=== PATIENT | female | born 1945 | race Caucasian/White ===

== ENCOUNTER 2019-06-19 01:00 | Inpatient (IN) | payer MEDICARE, BC ==
[2019-06-19] VITALS (7 sets, daily range): BP systolic 158–201; BP diastolic 69–90
[~2019-06-19] VITALS: Ht 162.6 cm; Wt 75.5 kg
[2019-06-19] MEDS ORDERED: INSU100V8 SQ (01:29)
[2019-06-19] MEDS ORDERED: METF500T17 PO (01:29)
[2019-06-19] MEDS ORDERED: HYDR-3342 PO (01:29)
[2019-06-19] MEDS ORDERED: METO-93 PO (01:29)
[2019-06-19] MEDS ORDERED: VERA300C2 PO (01:29)
[2019-06-19] MEDS ORDERED: LOSA100T14 PO (01:29)
[2019-06-19] MEDS ORDERED: SODIUM CHLORIDE FLUSH 10ML SYR IVF ONE (01:30)
[2019-06-19] MEDS ORDERED: LABETALOL 5MG/ML, 20ML IVPush ONE (01:30)
[2019-06-19] MEDS ORDERED: LABETALOL 5MG/ML, 20ML ONE (01:31)
[2019-06-19 01:33] LABS: MEAN CORPUSCULAR HEMOGLOBIN 29.9 pg (27.0-34.8); MEAN CORPUSCULAR HGB CONC 32.7 g/dL (32.4-35.8); MEAN CORPUSCULAR VOLUME 91.3 fL (80-100); MEAN PLATELET VOLUME 6.9 fL (7.4-10.4); PLATELET COUNT 535 x10^3/uL (130-400); RED BLOOD COUNT 3.88 x10^6/uL (3.82-5.3); RED CELL DISTRIBUTION WIDTH 14.7 % (9.6-15.2)
[2019-06-19 01:36] LABS: INTERNATIONAL NORMALIZED RATIO 1.09 (0.93-1.1); PROTHROMBIN TIME 11.4 Seconds (9.6-11.5)
[2019-06-19 01:37] LABS: ALBUMIN 3.4 g/dL (3.4-5.0); ANION GAP 7 mmol/L (5-15); CALCIUM 9.8 mg/dL (8.5-10.1); CHLORIDE 105 mmol/L (98-107); CREATININE 1.95 mg/dL (0.55-1.02)
--- NOTE | 2019-06-19 01:43 | NUR ---
Pt medicated per NOV. BP improving. Dr Mccord at bedside to [facility] for admission.
--- NOTE | 2019-06-19 02:01 | NUR ---
RECEIVED REPORT FROM CARMITA ZAZUETA; PT. TO BE TRANSPORT TO [facility] SOON [facility] FINISHED WITH ADMISSION EVAL. REPORT WAS ALREADY CALLED TO FLOOR BY CARMITA ZAZUETA.
[2019-06-19 02:15] LABS: BASOPHILS # (AUTO) 0.04 x10^3/uL (0-0.1); BASOPHILS % (AUTO) 0 % (0-1); EOSINOPHILS # (AUTO) 0.01 x10^3/uL (0-0.4); EOSINOPHILS % (AUTO) 0 % (1-7); LYMPHOCYTES # (AUTO) 1.64 x10^3/uL (1-3.4); LYMPHOCYTES % (AUTO) 11 % (22-44); MD SCAN; MONOCYTES # (AUTO) 1.56 x10^3/uL (0.2-0.8); MONOCYTES % (AUTO) 10 % (2-9); NEUTROPHILS # (AUTO) 12.13 x10^3/uL (1.8-6.8); NEUTROPHILS % (AUTO) 79 % (42-75)
[2019-06-19] MEDS ORDERED: LABETALOL 5MG/ML, 20ML IVPush PRN (02:30)
[2019-06-19] MEDS ORDERED: ONDANSETRON 2MG/ML, 2ML IVPush PRN (02:30)
[2019-06-19] MEDS ORDERED: ACETAMINOPHEN 325 MG TABLET PO PRN (02:30)
[2019-06-19] MEDS ORDERED: PHARMACY MAY ADJ FOR RENAL FX MC PRN (02:30)
[2019-06-19] MEDS: METOPROLOL SUCCINATE 100 MG TAB.ER.24H PO SCH (03:05)
[2019-06-19] MEDS ORDERED: MAGNESIUM SULFATE 1 GM in SODIUM CHLORIDE 0.9% 50 ML IV ONE (03:30)
[2019-06-19] MEDS ORDERED: SODIUM CHLORIDE 0.9% 1,000 ML IV SCH (03:30)
[2019-06-19 03:33] LABS: HEMOGLOBIN A1C 8.1 % (4.2-6.3)
[2019-06-19] MEDS: ASPIRIN 81 MG TABLET EC PO SCH (04:57)
[2019-06-19 07:19] LABS: ANION GAP 7 mmol/L (5-15); CALCIUM 9.7 mg/dL (8.5-10.1); CHLORIDE 106 mmol/L (98-107); CREATININE 1.86 mg/dL (0.55-1.02)
[2019-06-19] MEDS: INSULIN LISPRO 100 UNITS/ML, PEN SQ-INSULIN SCH ×4 (08:42→20:29)
[2019-06-19] MEDS ORDERED: METOPROLOL SUCCINATE 50 MG TAB.ER.24H PO SCH (09:00)
[2019-06-19] MEDS ORDERED: LABETALOL 5 MG/ML SYR. (IV ONLY) IVPush PRN (09:00)
[2019-06-19 09:07] LABS: MICROSCOPIC AUTO
[2019-06-19 09:09] LABS: CULTURE INDICATED? YES
[2019-06-19 09:10] LABS: CREATININE,URINE RANDOM 57.7 mg/dL
[2019-06-19] MEDS: LOSARTAN 50MG TABLET PO SCH ×2 (11:31→20:18)
[2019-06-19] MEDS: VERAPAMIL ER 180MG TABLET.ER PO SCH ×2 (11:31→20:17)
[2019-06-19] MEDS ORDERED: hydrALAzine 20 MG/ML, 1ML IV PRN (14:30)
[2019-06-19] MEDS ORDERED: MIDAZOLAM 1 MG/ML, 5ML ONE (14:39)
[2019-06-19] MEDS ORDERED: FENTANYL PF 100 MCG/2ML ONE ×2 (14:39→14:57)
[2019-06-19] MEDS ORDERED: CEFAZOLIN PMX 1GM/50ML 50 ML ONE (14:39)
[2019-06-19] MEDS ORDERED: LIDOCAINE 2%, 20ML ONE (14:40)
[2019-06-19] MEDS ORDERED: CEFAZOLIN 1,000 MG ONE (14:40)
[2019-06-19] MEDS: SODIUM CHLORIDE 0.9% 1,000 ML IV SCH ×2 (14:40→22:40)
[2019-06-19] MEDS ORDERED: ONDANSETRON 2MG/ML, 2ML ONE ×2 (14:57→15:36)
[2019-06-19] MEDS ORDERED: CEFAZOLIN PMX 1GM/50ML 50 ML IVPB ONE (15:00)
[2019-06-19] MEDS ORDERED: ONDANSETRON 2MG/ML, 2ML IV PRN (16:00)
[2019-06-19] MEDS ORDERED: HYDROcodone/APAP 5/325 TABLET PO PRN (16:00)
[2019-06-19] MEDS ORDERED: HOLD MEDICATION MC PRN (16:00)
[2019-06-19] MEDS: CEFAZOLIN PMX 1GM/50ML 50 ML IVPB SCH (20:17)
[2019-06-19] MEDS: SODIUM CHLORIDE FLUSH 10ML SYR IVF SCH (20:38)
[2019-06-19] MEDS ORDERED: VERAPAMIL HCL 300 MG HOMEMEDPO SCH (21:00)
[2019-06-19] MEDS ORDERED: INSULIN GLARGINE 100 UNITS/ML, PEN SQ-INSULIN SCH (21:00)
[2019-06-19] MEDS ORDERED: ENOXAPARIN 80 MG/0.8 ML SQ SCH (21:00)
[2019-06-20 02:46] VITALS: BP 139/76
[2019-06-20 04:51] LABS: BASOPHILS # (AUTO) 0.05 x10^3/uL (0-0.1); BASOPHILS % (AUTO) 0 % (0-1); EOSINOPHILS # (AUTO) 0.05 x10^3/uL (0-0.4); EOSINOPHILS % (AUTO) 0 % (1-7); LYMPHOCYTES # (AUTO) 1.53 x10^3/uL (1-3.4); LYMPHOCYTES % (AUTO) 11 % (22-44); MD NO; MEAN CORPUSCULAR HEMOGLOBIN 29.7 pg (27.0-34.8); MEAN CORPUSCULAR HGB CONC 32.3 g/dL (32.4-35.8); MEAN CORPUSCULAR VOLUME 91.9 fL (80-100); MEAN PLATELET VOLUME 6.9 fL (7.4-10.4); MONOCYTES # (AUTO) 1.33 x10^3/uL (0.2-0.8); MONOCYTES % (AUTO) 10 % (2-9); NEUTROPHILS # (AUTO) 10.64 x10^3/uL (1.8-6.8); NEUTROPHILS % (AUTO) 78 % (42-75); PLATELET COUNT 493 x10^3/uL (130-400); RED BLOOD COUNT 3.84 x10^6/uL (3.82-5.3); RED CELL DISTRIBUTION WIDTH 15.2 % (9.6-15.2)
[2019-06-20 05:06] VITALS: BP 183/83
[2019-06-20 05:06] LABS: ANION GAP 8 mmol/L (5-15); CALCIUM 9.5 mg/dL (8.5-10.1); CHLORIDE 105 mmol/L (98-107)
[2019-06-20] MEDS: ASPIRIN 81 MG TABLET EC PO SCH (05:07)
[2019-06-20] MEDS: CEFAZOLIN PMX 1GM/50ML 50 ML IVPB SCH ×2 (05:07→13:00)
[2019-06-20] MEDS: METOPROLOL SUCCINATE 100 MG TAB.ER.24H PO SCH (05:07)
[2019-06-20] MEDS: SODIUM CHLORIDE 0.9% 1,000 ML IV SCH (05:08)
[2019-06-20 05:10] LABS: CHOL/HDL RATIO 4.6; CHOLESTEROL, TOTAL 189 mg/dL (140-239); CREATININE 1.73 mg/dL (0.55-1.02); HDL CHOL % 22 % (28-40); HDL CHOLESTEROL (DIRECT) 41 mg/dL (40-60); LDL CHOLESTEROL,CALCULATED 102 mg/dL (54-169); LDL/HDL RATIO 2.5 (0.5-3.0); TRIGLYCERIDES 230 mg/dL (50-200); VLDL CHOLESTEROL 46 mg/dL (0-25)
[2019-06-20 08:06] VITALS: BP 185/77
[2019-06-20] MEDS: VERAPAMIL ER 180MG TABLET.ER PO SCH (08:13)
[2019-06-20] MEDS: LOSARTAN 50MG TABLET PO SCH (08:13)
[2019-06-20] MEDS: INSULIN LISPRO 100 UNITS/ML, PEN SQ-INSULIN SCH ×2 (08:14→11:44)
[2019-06-20] MEDS: SODIUM CHLORIDE FLUSH 10ML SYR IVF SCH (08:15)
[2019-06-20 11:25] VITALS: BP 152/81
[2019-06-20] MEDS ORDERED: DOXAZOSIN 2MG TABLET PO SCH (11:30)
[2019-06-20 13:05] VITALS: BP 146/71
[2019-06-20 13:48] VITALS: BP 130/60
[2019-06-20] MEDS ORDERED: DOXA2TAB9 PO (14:23)
[2019-06-20] MEDS ORDERED: LOSA50TA2 PO (14:23)
[2019-06-20] MEDS ORDERED: VERA180T6 PO (14:23)
[2019-06-20] MEDS ORDERED: METO-95 PO (14:23)
[2019-06-20] MEDS ORDERED: ASPI81TA45 PO (14:23)
[2019-06-20] MEDS ORDERED: ONDA4TAB13 SL (14:23)
== END 2019-06-20 16:45 | disposition home or self-care (01) | DRG 242 ==
LOC: ED 01:04 → EDIP 01:21 → 5SO 02:12 → DCLOUNGE 06-20 16:24
PROVIDERS: ADMIT Emergency Medicine; ATTEND Family Medicine
PROC: 0JH606Z Insertion of Pacemaker, Dual Chamber into Chest Subcutaneous Tissue and Fascia, Open Approach (ICD-10-PCS; principal; 2019-06-19)
PROC: 02HK3JZ Insertion of Pacemaker Lead into Right Ventricle, Percutaneous Approach (ICD-10-PCS; 2019-06-19)
PROC: 02H63JZ Insertion of Pacemaker Lead into Right Atrium, Percutaneous Approach (ICD-10-PCS; 2019-06-19)
DX: I21.4 Non-ST elevation (NSTEMI) myocardial infarction (principal); N17.0 Acute kidney failure with tubular necrosis; I42.1 Obstructive hypertrophic cardiomyopathy; D64.9 Anemia, unspecified; D72.829 Elevated white blood cell count, unspecified; E11.9 Type 2 diabetes mellitus without complications; E78.5 Hyperlipidemia, unspecified; E83.42 Hypomagnesemia; F17.210 Nicotine dependence, cigarettes, uncomplicated; I11.0 Hypertensive heart disease with heart failure; I16.0 Hypertensive urgency; I34.0 Nonrheumatic mitral (valve) insufficiency; I45.10 Unspecified right bundle-branch block; I49.1 Atrial premature depolarization; I50.9 Heart failure, unspecified; J44.9 Chronic obstructive pulmonary disease, unspecified; Z79.4 Long term (current) use of insulin; Z79.84 Long term (current) use of oral hypoglycemic drugs; Z82.49 Family history of ischemic heart disease and other diseases of the circulatory system; Z90.89 Acquired absence of other organs; Z88.8 Allergy status to other drugs, medicaments and biological substances; Z88.6 Allergy status to analgesic agent
CPT/HCPCS: 0399T; 33208; 36415; 71045; 80048; 80061; 81001; 82040; 82436; 82570; 82962; 83036; 83690; 83735; 83880; 84100; 84133; 84300; 84443; 84484; 85025; 85520; 85610; 85730; 87077; 87086; 87186; 93005; 93306; 93975; 96374; 99156; 99157; C1779; C1785; C1892; G0378; J0690; J2250; J2405; J3010; J3475; J1815; J7030

== ENCOUNTER → 2021-04-06 | Outpatient (CLI) | payer MEDICARE, BC ==
[~2021-04-06] MED LIST: AMINOPHYLLINE 25 MG/ML, 10ML ONE; ASPI81TA45 PO; DOXA2TAB9 PO; HYDR-3342 PO; INSU100V8 SQ; LOSA100T14 PO; LOSA50TA2 PO; METF500T17 PO; METO-93 PO; METO-95 PO; ONDA4TAB13 SL; REGADENOSON 0.4 MG/5 ML SYRINGE ONE; VERA180T6 PO; VERA300C6 PO
== END | disposition home or self-care (01) ==
LOC: CVU 06:38 → CFH 08:38
PROVIDERS: ATTEND Internal Medicine Cardiovascular Disease
DX: Z01.810 Encounter for preprocedural cardiovascular examination (principal); I08.3 Combined rheumatic disorders of mitral, aortic and tricuspid valves; I11.9 Hypertensive heart disease without heart failure
CPT/HCPCS: 78452; 93017; 93306; A9502; J0280; J2785